=== PATIENT | female | born 1960 | race Caucasian/White ===

== ENCOUNTER → 2016-10-29 | Outpatient (CLI) | payer BC ==
--- NOTE | 2016-10-29 14:48 | RAD ---
Bilateral lower extremity venous ultrasound, 10/29/2016: History: Bilateral leg pain Duplex evaluation of the deep veins in the lower extremities was performed including grayscale, color-flow and spectral Doppler analysis. The femoral and popliteal veins demonstrate normal compressibility and normal responses to distal augmentation maneuvers. Color imaging of those vessels shows no evidence of intraluminal clot. The visualized deep veins in both calves are patent. IMPRESSION: There is no sonographic evidence of deep vein thrombosis in either lower extremity.
== END | disposition home or self-care (01) ==
LOC: US 10:29
PROVIDERS: ATTEND Family Medicine
DX: M25.471 Effusion, right ankle (principal); M79.662 Pain in left lower leg; M79.661 Pain in right lower leg; Z68.39 Body mass index [BMI] 39.0-39.9, adult
CPT/HCPCS: 93970

== ENCOUNTER → 2019-04-26 | Outpatient (CLI) | payer BC ==
--- NOTE | 2019-04-26 15:23 | KCIC ---
EXAM: Bilateral tibia/fibula 2 views. HISTORY: Bilateral leg pain. COMPARISON: None. FINDINGS: A length of old cerclage wire is seen within the right tibial tubercle. No fractures are identified. There is mild medial compartmental osteoarthritis at the right knee. The left knee joint spaces are not fully profiled. The joint spaces and alignment of the ankles appear maintained. There is mild subcutaneous edema along both distal legs. IMPRESSION: 1. No fracture. Mild degenerative changes as above. Electronically signed by: Amanda Steward MD (04/26/2019 3:20 PM) [facility]
--- NOTE | 2019-04-26 16:27 | KCIC ---
EXAM: 1. Bilateral lower extremity arterial Doppler. 2. Bilateral lower extremity venous Doppler reflux study. HISTORY: Bilateral lower extremity pain, cold extremities, varicose veins, vein mapping. COMPARISON: None. FINDINGS: Grayscale and Doppler analysis of the lower extremity arterial systems was performed. There are triphasic waveforms throughout both lower extremities. Scattered atherosclerotic plaquing is noted bilaterally. No clearly elevated velocities suggestive of focal stenosis are seen bilaterally. Grayscale and Doppler analysis of the lower extremity venous systems was performed for vein mapping. There is no evidence of deep venous thrombosis. There is no evidence of greater saphenous reflux bilaterally. The greater saphenous veins measure 6.2 mm proximally and 5 mm distally on the right; and 9.1 mm proximally and 5.8 mm distally on the left. There is no evidence of lesser saphenous reflux bilaterally. The right lesser saphenous vein measures 4.7 mm proximally and 3 mm distally. The left lesser saphenous vein measures 2.6 mm proximally and 3.3 mm distally. IMPRESSION: 1. No evidence of hemodynamically significant arterial stenosis bilaterally. 2. No evidence of greater or lesser saphenous reflux bilaterally. Electronically signed by: Amanda Steward MD (04/26/2019 4:24 PM) [facility]
== END | disposition home or self-care (01) ==
LOC: KCIC 14:22
PROVIDERS: ATTEND Physician Assistant Surgical
DX: M17.11 Unilateral primary osteoarthritis, right knee (principal); I70.293 Other atherosclerosis of native arteries of extremities, bilateral legs; R20.8 Other disturbances of skin sensation; R60.0 Localized edema; I83.93 Asymptomatic varicose veins of bilateral lower extremities
CPT/HCPCS: 73590; 93925; 93970